=== PATIENT | male | born 1985 | race Asian ===

== ENCOUNTER 2018-06-26 00:35 | Emergency (ER) | payer BC ==
[~2018-06-26] VITALS: Ht 185.4 cm; Wt 99.8 kg
--- NOTE | 2018-06-26 00:45 | NUR ---
Patient to ER bed 07 to gown for evaluation. Side rails up. Report given to LILIA COLLINS.
[2018-06-26 00:47] VITALS: BP_SYST 120
--- NOTE | 2018-06-26 00:48 | NUR ---
ER Dr. POWELL at bedside examining patient.
[2018-06-26] MEDS ORDERED: LIDOCAINE 1% 10 MG/ML, 20 ML MDV INJ ONE (01:00)
[2018-06-26] MEDS ORDERED: DIPH-TET-PERTUS Vaccine 0.5 ML VIAL (ADACEL) I.M. ONE (01:00)
--- NOTE | 2018-06-26 01:20 | NUR ---
Dr Ashley at bedside, cauterized laceration on left big toe. Light drsg applied afterwards.
[2018-06-26] MEDS ORDERED: SILVER NITRATE APPLICATOR 1 STICK STICK..EA. TP ONE (01:22)
[2018-06-26 01:50] VITALS: BP_SYST 120
--- NOTE | 2018-06-26 01:50 | NUR ---
Patient given written and verbal discharge instructions and verbalizes understanding. ER Dr Dion HERNANDEZ discussed with patient the results and treatment provided. Patient in stable condition. ID arm band removed. Patient educated on pain management and to follow up with PMD. Pain Scale . Opportunity for questions provided and answered. Medication side effect fact sheet provided.
== END 2018-06-26 01:50 | disposition home or self-care (01) ==
LOC: SED 00:35
DX: S90.412A Abrasion, left great toe, initial encounter (principal); W25.XXXA Contact with sharp glass, initial encounter; Y93.89 Activity, other specified; Y92.002 Bathroom of unspecified non-institutional (private) residence as the place of occurrence of the external cause; Y99.8 Other external cause status
CPT/HCPCS: 90715; 99284

== ENCOUNTER 2021-09-28 17:44 | Emergency (ER) | payer BC ==
[~2021-09-28] VITALS: Ht 185.4 cm; Wt 104.3 kg
[2021-09-28 17:47] VITALS: BP_SYST 127
--- NOTE | 2021-09-28 17:47 | NUR ---
Pt to bed 1 for evaluation. Pt gowned and attached to telemetry monitor.
--- NOTE | 2021-09-28 17:50 | NUR ---
Pt AAO and ambulatory reporting intermittent dull chest pain since last night. Pt reports that he has no prior medical history and rates that pain 3/10 on pain scale.
--- NOTE | 2021-09-28 17:51 | NUR ---
EKG comp-leted upon arrival with results given to Dr. Aponte.
--- NOTE | 2021-09-28 18:37 | NUR ---
Dr Aponte at bedside to evaluate patient
--- NOTE | 2021-09-28 19:04 | NUR ---
Report given to Lynette COLLINS
--- NOTE | 2021-09-28 19:10 | NUR ---
RN ASSUMED CARE OF PT. PT LYING IN BED WITH EYES OPEN. ALERT AND ORIENTED X4. AT BEDSIDE. ALL VS ARE STABLE AT THIS TIME. NO ACUTE DISTRESS AT THIS TIME. WILL COTNINUE TO MONITOR.
[2021-09-28 19:17] LABS: BASOPHILS % (AUTO) 0.5 % (0.0-2.0); EOSINOPHILS # (AUTO) 0.2 K/uL (0.0-0.4); EOSINOPHILS % (AUTO) 3.4 % (0.0-4.0); HEMATOCRIT 45.4 % (36-54); HEMOGLOBIN 15.8 g/dL (14.0-18.0); LYMPHOCYTES # (AUTO) 2.8 K/uL (1.0-5.5); LYMPHOCYTES % (AUTO) 41.9 % (20.5-51.5); MEAN CORPUSCULAR HEMOGLOBIN 29 pg (27-31); MEAN CORPUSCULAR HGB CONC 35 % (32-36); MEAN CORPUSCULAR VOLUME 84 fL (79.0-98.0); MONOCYTES # (AUTO) 0.5 K/uL (0.0-1.0); NEUTROPHILS % (AUTO) 46.2 % (40.0-70.0); PLATELET COUNT (AUTO) 189 K/uL (130-430); RED BLOOD CELL COUNT(AUTO) 5.38 MIL/uL (4.2-6.2); RED CELL DISTRIBUTION WIDTH 13.4 % (9.0-15.0); WHITE BLOOD COUNT (AUTO) 6.6 K/uL (4.8-10.8)
[2021-09-28 19:31] LABS: ANION GAP 4 (5-15); CALCIUM 9.7 mg/dL (8.4-11.0); CHLORIDE 100 mmol/L (98-107); CREATININE 1.31 mg/dL (0.55-1.30); GLUCOSE 98 mg/dL (70-99); POTASSIUM 4.3 mmol/L (3.5-5.1); SODIUM SERUM 137 mmol/L (136-145); UREA NITROGEN, BLOOD 22 mg/dL (8-21)
[2021-09-28 19:37] LABS: GFR AFRICAN AMERICAN 80 mL/min (>90)
[2021-09-28 19:39] LABS: ALANINE AMINOTRANSFERASE 54 U/L (12-78); ALBUMIN 4.4 g/dL (3.4-4.8); ASPARTATE AMINOTRANSFERASE 28 U/L (10-37); TOTAL BILIRUBIN 0.7 mg/dL (0.0-1.0)
[2021-09-28 21:38] VITALS: BP_SYST 117
--- NOTE | 2021-09-28 21:40 | NUR ---
Patient given written and verbal discharge instructions and verbalizes understanding. ER MD discussed with patient the results and treatment provided. Patient in stable condition. ID arm band removed. No Rx provided at discharge. Patient educated on pain management and to follow up with PMD. Pain Scale 0/10. Opportunity for questions provided and answered.
== END 2021-09-28 21:38 | disposition home or self-care (01) ==
LOC: SED 17:44
DX: R07.89 Other chest pain (principal); N17.9 Acute kidney failure, unspecified; F17.290 Nicotine dependence, other tobacco product, uncomplicated; Z71.6 Tobacco abuse counseling
CPT/HCPCS: 36415; 71046-TC; 80053; 84484; 85025; 93005; 99285